=== PATIENT | male | born 1940 | race African-American/Black ===

== ENCOUNTER 2019-11-12 23:10 | Emergency (ER) | payer OTHER ==
[~2019-11-12] VITALS: Ht 175.3 cm; Wt 75.0 kg
[2019-11-12] MEDS ORDERED: MORPHINE SULFATE 4 MG/ML CPJ (NOT FOR IM USE) IV STA (23:30)
[2019-11-12] MEDS ORDERED: ONDANSETRON HCL 4MG/2ML INJ IV STA (23:30)
[2019-11-13 05:17] VITALS: BP 138/65
== END 2019-11-13 06:11 | disposition home or self-care (01) ==
LOC: ER 23:10
DX: T83.83XA Hemorrhage due to genitourinary prosthetic devices, implants and grafts, initial encounter (principal); R03.0 Elevated blood-pressure reading, without diagnosis of hypertension; Y73.8 Miscellaneous gastroenterology and urology devices associated with adverse incidents, not elsewhere classified; Y92.018 Other place in single-family (private) house as the place of occurrence of the external cause
CPT/HCPCS: 96374; 96375; 99285; J2270; J2405